=== PATIENT | male | born 1965 ===

== ENCOUNTER 2018-08-01 08:06 | Day surgery (SDC) | payer OTHER ==
[2018-08-01 08:53] VITALS: BMI 33.9
[2018-08-01 09:21] LABS: INR 1.1; PROTHROMBIN TIME 11.8 SECONDS (9.7-12.2)
[2018-08-01] MEDS ORDERED: Iohexol 350mg/ml 100 ML ONE (11:08)
[2018-08-01] MEDS ORDERED: DiphenhydrAMINE 50 mg/ml Inj IVP ONE (11:20)
[2018-08-01] MEDS ORDERED: Midazolam 2 MG/2 ML VIAL ONE (11:26)
--- NOTE | 2018-08-01 12:29 | CATH ---
APPROVED REPORT Date of service: 08/01/2018 Procedure(s) performed: Left Heart Catheterization HISTORY The patient is a 53 year-old male with a history of : coronary artery disease, hypertension, dyslipidemia, family history of premature CAD. INDICATION The indication(s) include : chest pain, dizziness and vertigo, abnormal ECG, dyspnea. CASE TECHNIQUE The patient was brought electively to the Cardiac Catheterization Laboratory in a fasting state and was prepped and draped in a sterile manner. The right femoral groin was infiltrated with 2% Lidocaine subcutaneous anesthesia. A sheath was inserted into the right femoral artery without difficulty. Coronary angiography was performed using coronary diagnostic catheters. The left coronary system was accessed and visualized with a Diagnostic catheter. The right coronary system was accessed and visualized with a Diagnostic catheter. The left ventricle was accessed and visualized with a Diagnostic catheter. Left ventricular/Aortic Valve gradient assessed on pullback. Left ventriculogram was performed in GARCIA projection. A sheath was inserted into the right femoral vein without difficulty. Coronary angiography was performed using coronary diagnostic catheters. Pre-demployment femoral angiogram was performed . Closure device was deployed with a 6 Fr Angioseal without any complications. The patient tolerated the procedure well and there were no complications associated with the procedure. Vessel Analysis The patient's coronary anatomy is right dominant. The left main coronary artery is a large size vessel without stenosis. The left main bifurcates to the left anterior descending and circumflex. The left anterior descending artery is a largemedium size vessel with stenosis. The first diagonal branch is a medium size vessel without significant stenosis. The second diagonal branch is a small size vessel with stenosis. There is a 85% stenosis in the ostial segment. JULIANA III FLOW DISTAL The third diagonal branch is a small size vessel without stenosis. THE LAD HAS MULTIPLE 30-40% LESIONS IN THE MID AND DISTAL SEGMENT. THESE ARE FOCAL WITH JULIANA III FLOW DISTAL. ADDITIONALLY THERE ARE MULTIPLE AREAS OF LAD BRIDGING IN THE MID AND DISTAL SEGMENT WITHOUT FLOW LIMITATION IN DIASTOLE OR SYSTOLE. The circumflex artery is a small size vessel without significant stenosis. The first obtuse marginal branch is a small size vessel without stenosis. The second obtuse marginal branch is a small size vessel without stenosis. The right coronary artery is a large size vessel without stenosis. The right posterior descending artery is a large size vessel without stenosis. The right posterolateral branch is a large size vessel without stenosis. Left Ventricle The left ventricle is NORMAL in size with LOW NORMAL contractility. The left ventricular ejection fraction is estimated to be 50-55%. The left ventricular end diastolic pressure is 8 mmHg. There was no gradient across the aortic valve upon pullback. Conclusion Double Vessel CAD D2 OSTIAL REGION IS SMALL CALIBER AND NOT OPTIMAL FOR PCI. LAD LESIONS ARE MOD IN SEVERITY EF IS 55% Recommendations Daily ASA with Plavix for at least one year Aggressive Medical TherapyCardiac Risk Reduction Program Weight Loss Reduction ProgramMedical Therapy ASA PLAVIX BB'S ACEI.
== END 2018-08-01 16:00 | disposition short-term general hospital (02) ==
LOC: C.CATHLAB 08:06
PROVIDERS: ATTEND Internal Medicine Cardiovascular Disease
DX: I25.10 Atherosclerotic heart disease of native coronary artery without angina pectoris (principal); E78.5 Hyperlipidemia, unspecified; I10 Essential (primary) hypertension; Z82.49 Family history of ischemic heart disease and other diseases of the circulatory system
CPT/HCPCS: 36415; 85610; 85730; J1200; J1644; J2250; J2930; J3010; Q9967